=== PATIENT | male | born 1945 | race Caucasian/White ===

== ENCOUNTER 2016-12-15 14:51 | Emergency (ER) | payer OTHER, SELFPAY ==
[2016-12-15 15:08] VITALS: BP 147/77; PULSE 77; RESP 18; TEMP 99; O2SAT 99
--- NOTE | 2016-12-15 15:23 | ED PDOC ---
Lower Extremity Pain/Injury Time Seen by Provider: 12/15/16 15:10 Chief Complaint (Nursing): Lower Extremity Problem/Injury Chief Complaint (Provider): left knee pain History Per: Patient Additional Complaint(s): 71 year old male presents to ED with pain to left knee that started yesterday. Patient denies any fall or injury. He took motrin today and this did not help. He denies any fall or trauma but reports history of arthritis. Past Medical History Reviewed: Historical Data, Nursing Documentation, Vital Signs Vital Signs: Last Vital Signs Temp 99.0 F 12/15/16 15:06 Pulse 77 12/15/16 15:06 Resp 18 12/15/16 15:06 BP 147/77 12/15/16 15:06 Pulse Ox 99 12/15/16 15:06 - Medical History PMH: Back Problems, Benign Prostatic Hyperplasia - Family History Family History: States: No Known Family Hx - Living Arrangements Living Arrangements: With Family - Social History Current smoker - smoking cessation education provided: No Alcohol: None Drugs: Denies - Home Medications Home Medications: Ambulatory Orders Medication Instructions Recorded Lidocaine [Lidoderm] 1 patch TP DAILY PRN #5 tdm 09/17/14 traMADol [Ultram] 50 mg PO Q6H PRN #20 tab 12/21/14 Naproxen [Naprosyn] 500 mg PO BID #20 tab 12/15/16 traMADol [Ultram] 50 mg PO TID PRN #15 tab 12/15/16 - Allergies Allergies/Adverse Reactions: Allergies Allergy/AdvReac Type Severity Reaction Status Date / Time No Known Allergies Allergy Verified 12/21/14 11:52 Wells Criteria for PE - Wells Criteria for Pulmonary Embolism Clinical Signs and Symptoms of DVT: No P.E is #1 Diagnosis, or Equally Likely: No Heart Rate >100: No Immobilization at least 3 days;Surgery previous 4 weeks: No Previous, objectively diagnosed PE or DVT: No Hemoptysis: No Malignancy w/treatment within 6 months, or palliative: No Total Score: 0 Review of Systems ROS Statement: Except As Marked, All Systems Reviewed And Found Negative Constitutional: Negative for: Fever Cardiovascular: Negative for: Chest Pain Gastrointestinal: Negative for: Nausea, Vomiting Musculoskeletal: Positive for: Other (left knee pain since yesterday, denies any fall or trauma) Physical Exam - Reviewed Nursing Documentation Reviewed: Yes Vital Signs Reviewed: Yes - Physical Exam Appears: Positive for: Well, Non-toxic, No Acute Distress Skin: Negative for: Rash Eye Exam: Positive for: Normal appearance Extremity: Positive for: Other (full rom left knee with pain, swelling, no erythema or warmth, swelling or tenderness, normal distal sensation left lower extremity) Neurologic/Psych: Positive for: Alert, Oriented, Gait (steady with cane) - ECG O2 Sat by Pulse Oximetry: 99 Pulse Ox Interpretation: Normal - Other Rad Left knee x-ray X-Ray: Interpreted by Me, Viewed By Me X-Ray Interpretation: no fx, no dis, moderate arthritic changes Medical Decision Making Medical Decision Makin71 year old with atraumatic left knee pain Plan: IM toradol PO tramadol X-ray left knee Patient is aware of x-ray results. Liang wrap was applied to left knee. Prescriptions given for tramadol and Naprosyn. Patient was referred to orthopedist wireless communications engineer and was advised to follow-up in 1-2 days. Procedures - Splinting Location: left knee Pre-Made Type: liang wrap Pre-Proc Neuro Vasc Exam: normal Post-Proc Neuro Vasc Exam: normal Disposition - Clinical Impression Clinical Impression: Knee pain, Arthritis of knee - Patient ED Disposition Is Patient to be Admitted: No Counseled Patient/Family Regarding: Studies Performed, Diagnosis, Need For Followup, Rx Given - Disposition Referrals: Leandra Lowry MD [Staff Provider] - Darwin Coles MD [Family Provider] - Disposition: Routine/Home Disposition Time: 16:36 Condition: STABLE Additional Instructions: Ice, rest and elevate affected area. Take prescription meds as directed as needed for pain. Follow up in 1-2 days with orthopedist. Prescriptions: Naproxen [Naprosyn] 500 mg PO BID #20 tab traMADol [Ultram] 50 mg PO TID PRN #15 tab PRN Reason: Pain, Moderate (4-7) Instructions: Knee Pain (ED), Arthralgia (ED) Forms: [employer] ([place]orese) Print Language: SLOVAK
--- NOTE | 2016-12-15 17:19 | RAD ---
PROCEDURE: Left Knee Radiographs. HISTORY: Pain. COMPARISON: None. FINDINGS: BONES: No evidence of acute displaced fracture nor dislocation. JOINTS: Mild degenerative changes patellofemoral compartment. Small anterior inferior and anterior superior patella enthesophyte formation. Slight spurring of the medial tibial spine There also small heterotopic bone changes seen within the soft tissues adjacent to distal lateral femoral metaphysis JOINT EFFUSION: Suspect trace joint effusion. OTHER FINDINGS: None. IMPRESSION: . No evidence of acute displaced fracture or dislocation. Mild patellofemoral DJD. Suspect trace suprapatellar joint effusion.
== END 2016-12-15 17:43 | disposition home or self-care (01) ==
LOC: H.ER 14:51
DX: M25.562 Pain in left knee (principal); M17.12 Unilateral primary osteoarthritis, left knee
CPT/HCPCS: 73562; 96372; 99282; J1885

== ENCOUNTER 2017-01-10 17:45 | Inpatient (IN) | payer MEDICAID, OTHER ==
[2017-01-10 19:26] LABS: BASO % 0.6 % (0.0-2.0); EOS # 0.1 K/uL (0.0-0.7); EOS % 1.2 % (0.0-4.0); HEMATOCRIT 44.3 % (35.0-51.0); LYMPH # 2.6 K/uL (1.0-4.3); LYMPH % 29.9 % (20.0-40.0); MEAN CELL VOLUME 90.9 fl (80.0-94.0); MEAN CORPUSCULAR HEMOGLOBIN 30.4 pg (27.0-31.0); MEAN CORPUSCULAR HGB CONC 33.4 g/dL (33.0-37.0); MEAN PLATELET VOLUME 8.9 fl (7.2-11.7); MONO # 0.7 K/uL (0.0-0.8); MONO % 8.7 % (0.0-10.0); NEUT # 5.1 K/uL (1.8-7.0); NEUT % 59.6 % (50.0-75.0); RED CELL DISTRIBUTION WIDTH 13.6 % (11.5-14.5); WHITE BLOOD COUNT 8.6 K/uL (4.8-10.8)
[2017-01-10 19:38] LABS: ALB/GLOB RATIO 1.3 (1.0-2.1); ALKALINE PHOSPHATASE 106 U/L (38-126); ALT/SGPT 20 U/L (21-72); AST/SGOT 20 U/L (17-59); BILIRUBIN,TOTAL 0.9 mg/dl (0.2-1.3); BLOOD UREA NITROGEN 17 mg/dl (9-20); CARBON DIOXIDE 19 mmol/L (22-30); CHLORIDE 110 mmol/L (98-107); GFR AFRICAN-AMERICAN > 60; GLUCOSE,RANDOM 85 mg/dL (75-110); SODIUM 141 mmol/l (132-148); TOTAL PROTEIN 7.5 G/DL (6.3-8.2)
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
--- NOTE | 2017-01-10 20:20 | ED PDOC ---
- Laboratory Results Result Diagrams: 01/10/17 19:05 01/10/17 19:05 - ECG O2 Sat by Pulse Oximetry: 99 Pulse Ox Interpretation: Normal - Other Rad CT head X-Ray: Read By Radiologist X-Ray Interpretation: no acute finding Medical Decision Making Medical Decision Making: Case was signed out to aligner typewriter from DANY Baez pending crisis eval, CT head and final disposition. As per crisis counselor and psychiatrist maori liaison adviser, Dr. Sage, patient does meet criteria for admission. Patient agrees to sign in. Patient is medically stable for psychiatric admission. Disposition - Clinical Impression Clinical Impression: Dementia - POA Present On Arrival: None - Disposition Disposition: Admitted as In-Patient Disposition Time: 23:33 Condition: FAIR Results - Lab Results Lab Results: 01/10/17 01/10/17 01/10/17 19:34 19:05 19:05 WBC 8.6 RBC 4.88 Hgb 14.8 Hct 44.3 MCV 90.9 D MCH 30.4 MCHC 33.4 RDW 13.6 Plt Count 150 MPV 8.9 Neut % (Auto) 59.6 Lymph % (Auto) 29.9 [place] % (Auto) 8.7 Eos % (Auto) 1.2 Baso % (Auto) 0.6 Neut # 5.1 Lymph # 2.6 [place] # 0.7 Eos # 0.1 Baso # 0.0 Sodium 141 Potassium 4.0 Chloride 110 H Carbon Dioxide 19 L Anion Gap 16 BUN 17 Creatinine 1.0 Est GFR ( Amer) > 60 Est GFR (Non-Af Amer) > 60 Random Glucose 85 Calcium 10.0 Total Bilirubin 0.9 AST 20 ALT 20 L Alkaline Phosphatase 106 Ammonia < 9 L Total Protein 7.5 Albumin 4.3 Globulin 3.2 Albumin/Globulin Ratio 1.3
--- NOTE | 2017-01-10 21:01 | CT ---
EXAM: CT Head Without Intravenous Contrast CLINICAL HISTORY: 71 years old, male; Signs and symptoms; Other: Aggressive behavoir; Additional info: Agressive behavior TECHNIQUE: Axial computed tomography images of the head/brain without intravenous contrast. All CT scans at this facility use one or more dose reduction techniques, viz.: automated exposure control; ma/kV adjustment per patient size (including targeted exams where dose is matched to indication; i.e. head); or iterative reconstruction technique. Coronal and sagittal reformatted images were created and reviewed. COMPARISON: No relevant prior studies available. FINDINGS: Brain: Mild atrophy. No intracranial hemorrhage. No mass. No definite edema. Ventricles: No hydrocephalus. Bones/joints: No acute fracture. Soft tissues: Unremarkable. Sinuses: No acute sinusitis. Mastoid air cells: No mastoid effusion. Orbits: Unremarkable as visualized. IMPRESSION: 1. No acute intracranial abnormality.
[2017-01-10 22:32] LABS: RBC URINE 9 /hpf (0-3); URINE BILIRUBIN NEGATIVE (NEGATIVE); URINE BLOOD SMALL (NEGATIVE); URINE COLOR YELLOW (YELLOW); URINE GLUCOSE (UA) NEG (Normal); URINE KETONE TRACE mg/dL (NEGATIVE); URINE LEUKOCYTE ESTERASE NEG Leu/uL (Negative); URINE PROTEIN NEGATIVE (NEGATIVE); URINE UROBILINOGEN 0.2-1.0 mg/dL (0.2-1.0); WBC URINE < 1 /hpf (0-5)
[2017-01-10 23:34] VITALS: O2SAT 99
[2017-01-11] MEDS ORDERED: Bismuth Subsalicylate 262 mg/15 ml Sus (240 ml) PO PRN (00:30)
[2017-01-11] MEDS ORDERED: Alum-Mag Hydrox-Simethicone Susp (30 mL) PO PRN (00:30)
[2017-01-11] MEDS ORDERED: Magnesium Hydroxide Susp 30 ml UD PO PRN (00:30)
--- NOTE | 2017-01-11 00:57 | PCM.BM ---
<Reuben Guerrero P - Last Filed: 01/11/17 00:55> Treatment Plan Problems - Problems identified on initial assessmt Delusions Date Initiated: 01/11/17 Time Initiated: 00:45 Assessment reference: NA Status: Active Agitated/aggressive behavior Date Initiated: 01/11/17 Time Initiated: 00:45 Assessment reference: NA Status: Active Treatment assets and liabiliti Patient Assests: cooperative, ADL independent, physically healthy, good support system, negotiates basic needs, cognitively intact Patient Liabilities: relationship conflicts, language/speech - Milieu Protocol Maintain good personal hygiene: daily Encourage regular showers, daily Remind patient to perform daily oral care, daily Assist patient to perform ADL's Maintain personal safety: every shift Educate patient to report safety concerns to staff, every shift Monitor environment for contraband/sharps Medication safety: Monitor for expected outcome, potential side effects: every shift, Assess barriers to learning: every shift, Assess readiness for medication education: every shift <Liliane Sage - Last Filed: 01/13/17 09:56> - Diagnosis (1) Mood disorder Status: Acute Interventions: 01/13/17 09:56 Medication management, individual and group therapy, psychoeducation <Dara Bunch M - Last Filed: 01/13/17 10:23> Family Contact Family contact: Patient agrees to contact, Family has been contacted by patient , Telephone contact initiated by staff, Family contacted unit to give information Family contact name: Freda Atkinson (spouse) Family contacted how many times per week?: 2 ([phone]) - Goals for Treatment Patient goals for treatment: Pt to be encouraged to attend activity and clinical groups 3-5x per week to identify at least 2 contributing factors to increased agitation, paranoia and aggressive bx's at home. Pt to be encouraged to participate in group milieu to develop effective coping skills, improve insight and decrease aggressive bxs and paranoia. Discharge/Continuing Care - Education Needs Education Needs: Family Medication, Family Diagnosis/Disease Process, Family Coping Skills, Family Anger Management skills, Family Placement options, Family Community resources, Family Activities of Daily Living, Family Personal Hygiene/ Grooming, Family Aftercare Safety Plan, Patient Medication, Patient Diagnosis/ Disease Process, Patient Coping Skills, Patient Anger Management skills, Patient Placement options, Patient Community resources, Patient Activities of Daily Living, Patient Personal Hygiene/Grooming, Patient Aftercare Safety Plan - Discharge Discharge Criteria: Tolerates medication w/o severe side effects, Free of paranoid thoughts, Free of agitation, Normal sleep pattern, Ability to care for self, Reduction of target symptoms Discharge to:: Home, With Family - Additional Comments 01/13/17 09:59 Pt seen and discussed in team meeting. Reason for admission discussed. Pt's medications reviewed and discussed. Pt's social and medical issues discussed. Treatment team recommendations discussed, pt agreeable. Pt provided grant writer with verbal consent to contact family for collateral information. Pt agreeable to grant writer contacting his son and spouse. - Treatment Team Participation Discussed with Family/SO: Yes (Pt's family will be informed via telephone )
[2017-01-11 07:27] LABS: T4 6.97 ug/dl (5.5-11.0)
[2017-01-11 07:40] LABS: THYROID STIMULATING HORMONE 2.26 mIU/ML (0.46-4.68)
[2017-01-11] MEDS ORDERED: Pneumococcal 23-Valent Vaccine IM ONE (10:00)
[2017-01-11] MEDS ORDERED: Influenza Vaccine 18yr & older 0.5 ML/45 MCG SYR IM ONE (10:00)
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
--- NOTE | 2017-01-11 12:14 | CP.PCM.CON ---
History of Present Illness - History of Present Illness History of Present Illness: Reason for Consult: per hospital protocol HPI 71 M no known past medical history is admitted for aggressive behavior. Patient at time of this exam is calm, no complaints, VSS NAD ROS: per HPI, 12 systems reviewed and negative PMH: denies PSH: denies FH: denies SH: denies tobacco, ETOH, IVDU Meds: as below Allergies: NKDA Vitals: reviewed and currently stable Exam: GEN: WDWN, alert, cooperative HEENT: NCAT, PERRL, EOMI NECK: supple, no JVD, no lymphadenopathy CARDIAC: +S1S2 RRR LUNG: CTAB No WRR ABD: SOFT NT ND BSX4 NO MASSES NO HSM EXT: +pedal pulses, equal strength NEURO: AAOx3 SKIN warm, dry PSYCH normal mood, normal affect Labs: 01/10/17 19:05 01/10/17 19:05 Rads: HEAD CT: neg Active Medications: 01/11/17 00:29 LORazepam [Ativan] 0.5 mg PO HS PRN 01/11/17 00:30 Acetaminophen [Tylenol 325mg tab] 650 mg PO Q4 PRN Aluminum Hydroxide/Magnesium [Maalox Plus 30 ml] 30 ml PO Q4 PRN Bismuth Subsalicylate [Pepto-Bismol] 524 mg PO Q4 PRN LORazepam [Ativan] 0.5 mg PO Q6 PRN Magnesium Hydroxide [Milk Of Magnesia] 30 ml PO HS PRN Assessment and Plan: 71 M no known past medical history is admitted for aggressive behavior. Patient at time of this exam is calm, no complaints, VSS NAD Aggressive Behavior management per psych team Past Patient History - Past Social History Smoking Status: Never Smoked - CARDIAC Hx Hypertension: Yes - PULMONARY Hx Tuberculosis: No - NEUROLOGICAL HX Cerebrovascular Accident: No Hx Seizures: No - HEMATOLOGICAL/ONCOLOGICAL Hx Cancer: No Hx Human Immunodeficiency Virus (HIV): No - MUSCULOSKELETAL/RHEUMATOLOGICAL Hx Falls: Yes (8 mons ago) - GENITOURINARY/GYNECOLOGICAL Hx Prostate Problems: Yes - PSYCHIATRIC Hx Substance Use: No - SURGICAL HISTORY Hx Herniorrhaphy: Yes - ANESTHESIA Hx Anesthesia: Yes Hx Anesthesia Reactions: No Meds Allergies/Adverse Reactions: Allergies Allergy/AdvReac Type Severity Reaction Status Date / Time No Known Allergies Allergy Verified 12/21/14 11:52 - Medications Medications: Current Medications Acetaminophen (Tylenol 325mg Tab) 650 mg PO Q4 PRN PRN Reason: Pain, moderate (4-7) Al Hydrox/Mg Hydrox/Simethicone (Maalox Plus 30 Ml) 30 ml PO Q4 PRN PRN Reason: Dyspepsia Bismuth Subsalicylate (Pepto-Bismol) 524 mg PO Q4 PRN PRN Reason: Diarrhea Lorazepam (Ativan) 0.5 mg PO HS PRN PRN Reason: Insomnia Stop: 01/25/17 00:30 Lorazepam (Ativan) 0.5 mg PO Q6 PRN PRN Reason: Anixety/Agitation Stop: 01/25/17 00:31 Magnesium Hydroxide (Milk Of Magnesia) 30 ml PO HS PRN PRN Reason: Constipation Results - Vital Signs Recent Vital Signs: Last Vital Signs Temp 97.1 F L 01/11/17 05:49 Pulse 60 01/11/17 05:49 Resp 19 01/11/17 05:49 BP 125/63 01/11/17 05:49 Pulse Ox 99 01/10/17 23:34 - Labs Result Diagrams: 01/10/17 19:05 01/10/17 19:05 Labs: Laboratory Results - last 24 hr 01/10/17 01/10/17 01/10/17 20:17 22:20 22:20 Ferritin Triglycerides Cholesterol LDL Cholesterol Direct HDL Cholesterol Vitamin B12 Free T4 Thyroxine (T4) TSH 3rd Generation Urine Color Yellow Urine Clarity Slighty-cloudy Urine pH 5.0 Ur Specific [place] 1.023 Urine Protein Negative Urine Glucose (UA) Neg Urine Ketones Trace Urine Blood Small Urine Nitrate Negative Urine Bilirubin Negative Urine Urobilinogen 0.2-1.0 Ur Leukocyte Esterase Neg Urine RBC (Auto) 9 H Urine Microscopic WBC < 1 Urine Opiates Screen Negative Urine Methadone Screen Negative Ur Barbiturates Screen Negative Ur Phencyclidine Scrn Negative Ur Amphetamines Screen Negative U Benzodiazepines Scrn Negative U Oth Cocaine Metabols Negative U Cannabinoids Screen Negative Alcohol, Quantitative < 10 01/11/17 01/11/17 04:00 06:30 Ferritin 41.4 Triglycerides 174 H Cholesterol 173 LDL Cholesterol Direct 95 HDL Cholesterol 35 Vitamin B12 404 Free T4 0.90 Thyroxine (T4) 6.97 TSH 3rd Generation 2.26 Urine Color Urine Clarity Urine pH Ur Specific [place] Urine Protein Urine Glucose (UA) Urine Ketones Urine Blood Urine Nitrate Urine Bilirubin Urine Urobilinogen Ur Leukocyte Esterase Urine RBC (Auto) Urine Microscopic WBC Urine Opiates Screen Urine Methadone Screen Ur Barbiturates Screen Ur Phencyclidine Scrn Ur Amphetamines Screen U Benzodiazepines Scrn U Oth Cocaine Metabols U Cannabinoids Screen Alcohol, Quantitative
--- NOTE | 2017-01-11 12:44 | RAD ---
HISTORY: cough COMPARISON: No prior. TECHNIQUE: Chest PA and lateral FINDINGS: LUNGS: No active pulmonary disease. PLEURA: No significant pleural effusion identified. No pneumothorax apparent. CARDIOVASCULAR: Normal. OSSEOUS STRUCTURES: No significant abnormalities. VISUALIZED UPPER ABDOMEN: Normal. OTHER FINDINGS: None. IMPRESSION: No active disease.
--- NOTE | 2017-01-12 20:05 | PCM.PYCHPN ---
Psychiatric Progress Note - Psychiatric Progress Note Patient seen today, length of contact: chart reviewed case discussed with team Patient Chief Complaint: reports had visit with family reported as positive. does report feeling a little down, changes in lof, remorse related to reported actions prior to admission Problems Identified/Issues Discussed: alteration in mood alteration self care Medical Problems: per chart seen by dr pal Diagnostic Results: per psychiatry per medicine per nursing per social work DSM 5 Symptoms Update: alteration in mood ?changes short term memory alteration in urological function ? erectile dysfunction Medication Change: Yes (lexapro 5mg po hs ?mood ) Medical Record Reviewed: Yes Consults ordered or reviewed: pt seen by hospitalist Mental Status Examination - Cognitive Function Orientation: Person, Place, Situation, Time Memory: Intact Attention: WNL Concentration: WNL Association: WNL Fund of Knowledge: WN Decription of patient's judgement and insights: somewhat impaired - Mood Mood: Depressed Additional comments: somewhat down - Affect Affect: Broad - Speech Speech: Soft Additional comments: speaks canadian - Formal Thought Process Formal Thought Process: No Impairment - Homicidal Ideation Homicidal Ideation: No Goal/Treatment Plan - Goal/Treatment Plan Need for Continued Stay: Remain at risks for inpatient hospitalization, Failed transitioning Progress Toward Problem(s) and Goals/Treatment Plan: inpt milieu vital signs and clinical observation per protocol and per clinical status prns per protocol dr torres-dementia screening\ disposition planning in progress Estimated Date of D/C: 01/16/17 - Smoking Cessation Smoking Cessation Initiated: No Reason for not providing: pt deferred
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
[2017-01-13 13:57] LABS: FOLATE 5.2 ng/mL
[2017-01-13] MEDS: Naproxen 500 MG TAB PO PRN (21:41)
--- NOTE | 2017-01-14 11:04 | PCM.PYCHPN ---
Psychiatric Progress Note - Psychiatric Progress Note Patient seen today, length of contact: Patient evaluated, case discussed with team, chart reviewed, 35 min Patient Chief Complaint: "I'm okay" Problems Identified/Issues Discussed: Patient reports that his mood is good. He is discharge focussed. He denies ideation to harm self or others. He reports less paranoia. No adverse effects to Risperdal reported. Medication Change: No Medical Record Reviewed: Yes Mental Status Examination - Cognitive Function Orientation: Person, Place, Situation, Time Memory: Intact Attention: WNL Concentration: WNL Association: WN Fund of Knowledge: [facility] Decription of patient's judgement and insights: Fair I/J - Mood Mood: Neutral - Affect Affect: Broad - Speech Speech: Appropriate - Formal Thought Process Formal Thought Process: Paranoia Psychotic Thoughts and Behaviors: +Less paranoia - Suicidal Ideation Suicidal Ideation: No - Homicidal Ideation Homicidal Ideation: No Goal/Treatment Plan - Goal/Treatment Plan Need for Continued Stay: Remain at risks for inpatient hospitalization, Discharge may exacerbated symptoms Progress Toward Problem(s) and Goals/Treatment Plan: Mood disorder unspecified, Psychosis unspecified; r/o dementia w/ behavioral disturbances; Patient is improving clinically -Continue Risperdal 0.5 mg PO HS -Obtain collateral history from his family -Individual and group therapy -Disposition planning -Medicine consult appreciated Estimated Date of D/C: 01/15/17 - Smoking Cessation Smoking Cessation Initiated: No Reason for not providing: Not indicated
[2017-01-14 16:16] VITALS: RESP 20
[2017-01-14] MEDS: Naproxen 500 MG TAB PO PRN (21:15)
[2017-01-15 05:41] VITALS: BP 102/51; PULSE 90; TEMP 97
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
== END 2017-01-15 13:00 | disposition home or self-care (01) | DRG 885 ==
LOC: H.ER 17:45 → H.EROBSV 20:04 → OBSVTOIN 20:04 → H.ERHOLD 23:11 → H.STEP 01-11 00:12
PROVIDERS: ADMIT Psychiatry & Neurology Psychiatry; ATTEND Psychiatry & Neurology Psychiatry
PROC: 3E0234Z Introduction of Serum, Toxoid and Vaccine into Muscle, Percutaneous Approach (ICD-10-PCS; principal; 2017-01-11)
DX: F39 Unspecified mood [affective] disorder (principal); F03.91 Unspecified dementia, unspecified severity, with behavioral disturbance; N40.0 Benign prostatic hyperplasia without lower urinary tract symptoms; I10 Essential (primary) hypertension; M54.9 Dorsalgia, unspecified; F22 Delusional disorders; Z23 Encounter for immunization

== ENCOUNTER 2017-06-14 14:49 | Emergency (ER) | payer MEDICAID, OTHER ==
[2017-06-14 15:00] VITALS: BP 137/69; PULSE 78; RESP 16; TEMP 97.6; O2SAT 98
[2017-06-14] MEDS ORDERED: Lidocaine 5% Patch TD STA (15:31)
--- NOTE | 2017-06-14 15:59 | ED PDOC ---
Lower Extremity Pain/Injury Time Seen by Provider: 06/14/17 15:03 Chief Complaint (Nursing): Lower Extremity Problem/Injury Chief Complaint (Provider): Right Ankle Pain History/Exam Limitations: no limitations Onset/Duration Of Symptoms: Days (x3), Worse Since Current Symptoms Are (Timing): Still Present Severity: None Additional Complaint(s): 72 year old male with a past medial history of gout, hypertension and dementia presents to the ED complaining of right ankle pain x3 days. The patient reports that the pain has been worsening with onset and associated with swelling. He states that he has not taken any medications for pain because he is unsure of whether not they would interrupt his other day to day medications. Denies trauma , fever. Patient states that he had similar pains in the past and was told that it was secondary to gout. PMD: Dr. Clinton ([place]) Past Medical History Reviewed: Historical Data, Nursing Documentation, Vital Signs Vital Signs: Last Vital Signs Temp 97.6 F 06/14/17 14:57 Pulse 78 06/14/17 14:57 Resp 16 06/14/17 14:57 BP 137/69 06/14/17 14:57 Pulse Ox 98 06/14/17 14:57 - Medical History PMH: Back Problems, Benign Prostatic Hyperplasia, HTN Denies: Diabetes, Hepatitis, HIV, Seizures, Sexually Transmitted Disease - Surgical History Surgical History: Hernia Repair Other surgeries: Knee meniscal repair; tonsillectomy - Family History Family History: States: Unknown Family Hx - Home Medications Home Medications: Ambulatory Orders Medication Instructions Recorded risperiDONE [RisperDAL Tab] 0.5 mg PO HS #30 tab 01/15/17 Naproxen [Naprosyn] 1 tab PO BID PRN #30 tab 06/14/17 - Allergies Allergies/Adverse Reactions: Allergies Allergy/AdvReac Type Severity Reaction Status Date / Time No Known Allergies Allergy Verified 12/21/14 11:52 Review of Systems ROS Statement: Except As Marked, All Systems Reviewed And Found Negative Constitutional: Negative for: Fever Musculoskeletal: Positive for: Other (Right Ankle Pain and swelling) Physical Exam - Reviewed Nursing Documentation Reviewed: Yes Vital Signs Reviewed: Yes - Physical Exam Appears: Positive for: Well, No Acute Distress Head Exam: Positive for: ATRAUMATIC, NORMOCEPHALIC Skin: Positive for: Warm, Dry. Negative for: Rash Extremity: Positive for: Calf Tenderness (less than 2 seconds), Other (right ankle b/l edema non pitting with tenderness to palpation to b/l malleloli lateral worse than medial; light tough intact palpable pedal pulses less than 2 sec; capillary refills plantar flexion and dorsiflexion 5/5 strength ). Negative for: Tenderness, Swelling Neurologic/Psych: Positive for: Alert. Negative for: Motor/Sensory Deficits - ECG O2 Sat by Pulse Oximetry: 98 Pulse Ox Interpretation: Normal Medical Decision Making Medical Decision Makin initial Impression 72 y/o male presenting with ankle pain and swelling Initial Plan: * Lidocaine 1ex TD * Toradol 30m IM RD * Rt ankle * Reevaluation RIGHT ankle xray: No fx/dislocation. +degenerative changes Aircast, Naprosyn, stable for dc with f/u podiatry Documented by Tiera Bardales acting as a scribe for Giulia Bolaños MD. All medical record entries made by the Scribe were at my direction and personally dictated by me. I have reviewed the chart and agree that the record accurately reflects my personal performance of the history, physical exam, medical decision making, and the department course for this patient. I have also personally directed, reviewed, and agree with the discharge instructions and disposition. Disposition - Clinical Impression Clinical Impression: Ankle pain Counseled Patient/Family Regarding: Studies Performed, Diagnosis, Need For Followup, Rx Given - Disposition Referrals: Podiatry Clinic [Outside] - 06/16/17 ([facility]SE[facility] EN 2- 3 PARTIDA A CHEQAR DE NUEVO) [facility] [Outside] Disposition: Routine/Home Disposition Time: 17:33 Condition: STABLE Prescriptions: Naproxen [Naprosyn] 1 tab PO BID PRN #30 tab PRN Reason: Pain Instructions: Gout (DC) Print Language: JAPANESE
--- NOTE | 2017-06-15 10:27 | RAD ---
PROCEDURE: Right Wrist Radiographs. HISTORY: RIGHT ankle pain and swelling COMPARISON: None. FINDINGS: BONES: Normal. No fracture. JOINTS: Normal. No dislocation. SOFT TISSUES: Normal. OTHER FINDINGS: Mild degenerative changes with plantar heel spur. IMPRESSION: No fracture.
== END 2017-06-14 19:00 | disposition home or self-care (01) ==
LOC: H.ER 14:49
DX: M25.571 Pain in right ankle and joints of right foot (principal); I10 Essential (primary) hypertension; F03.90 Unspecified dementia, unspecified severity, without behavioral disturbance, psychotic disturbance, mood disturbance, and anxiety; M10.9 Gout, unspecified
CPT/HCPCS: 73610; 96372; 99283; J1885

== ENCOUNTER 2017-07-24 14:04 | Emergency (ER) | payer MEDICAID, OTHER, SELFPAY ==
[2017-07-24 14:16] VITALS: O2SAT 98
[2017-07-24] MEDS ORDERED: Sodium Chloride 0.9% 500 ML IV STA (15:27)
--- NOTE | 2017-07-24 15:36 | ED PDOC ---
HPI: Headache Time Seen by Provider: 07/24/17 15:35 Chief Complaint (Nursing): Headache Chief Complaint (Provider): HEADACHE History Per: Patient (72 Y/O MALE HERE WITH HEADACHE GENERALIZED ONGOING X 3 DAYS. SEEN [place] [facility] [place] WNL AND GIVEN RX FOR TYLENOL. DID NOT TAKE ANY MEDICATION TODAY. DENIES ANY H/O HEADACHE. DENEIS ANY FEVERS/CHILLS.) Past Medical History Reviewed: Historical Data, Nursing Documentation, Vital Signs Vital Signs: Last Vital Signs Temp 98.0 F 07/24/17 14:11 Pulse 84 07/24/17 14:11 Resp 16 07/24/17 14:11 BP 136/76 07/24/17 14:11 Pulse Ox 98 07/24/17 14:11 - Medical History PMH: Back Problems, Benign Prostatic Hyperplasia, HTN Denies: Diabetes, Hepatitis, HIV, Seizures, Sexually Transmitted Disease - Surgical History Surgical History: Hernia Repair - Family History Family History: States: Unknown Family Hx - Home Medications Home Medications: Ambulatory Orders Medication Instructions Recorded risperiDONE [RisperDAL Tab] 0.5 mg PO HS #30 tab 01/15/17 Naproxen [Naprosyn] 1 tab PO BID PRN #30 tab 06/14/17 - Allergies Allergies/Adverse Reactions: Allergies Allergy/AdvReac Type Severity Reaction Status Date / Time No Known Allergies Allergy Verified 07/24/17 14:11 Review of Systems ROS Statement: Except As Marked, All Systems Reviewed And Found Negative Neurological: Positive for: Headache Physical Exam - Reviewed Nursing Documentation Reviewed: Yes Vital Signs Reviewed: Yes - Physical Exam Appears: Positive for: Well, Non-toxic, No Acute Distress Head Exam: Positive for: ATRAUMATIC, NORMAL INSPECTION, NORMOCEPHALIC Skin: Positive for: Normal Color, Warm, DRY Eye Exam: Positive for: EOMI, Normal appearance, PERRL ENT: Positive for: Normal ENT Inspection Neck: Positive for: Normal, Painless ROM Cardiovascular/Chest: Positive for: Regular Rate, Rhythm Respiratory: Positive for: CNT, Normal Breath Sounds Gastrointestinal/Abdominal: Positive for: Normal Exam, Bowel Sounds, Soft Back: Positive for: Normal Inspection Extremity: Positive for: Normal ROM Neurologic/Psych: Positive for: Alert, Oriented - Laboratory Results Result Diagrams: 07/24/17 16:15 07/24/17 16:15 - ECG O2 Sat by Pulse Oximetry: 98 - Progress ED Course And Treament: Head CT: IMPRESSION: No acute intracranial abnormality. Mild age-related global parenchymal volume loss. NS 500 ml iv bolus Toradol 15 mg iv x 1 dose states patient has appt with psychiatrist August 01. Patient to f/u with him for further evaluation. As per , patient has been having abnormal sleeping pattern and intermittently missing dosing of medication of mirtazapine/ risperidone. d/w family if unable to obtain earlier appointment, can return to ED . Family does not want psych eval at this time. Disposition - Clinical Impression Clinical Impression: Headache - Patient ED Disposition Is Patient to be Admitted: No - Disposition Disposition: Routine/Home Disposition Time: 19:17 Condition: FAIR Instructions: Tension Headache Forms: [employer] (Albanian)
[2017-07-24 16:21] LABS: BASO # 0.1 K/uL (0.0-0.2); BASO % 0.8 % (0.0-2.0); EOS # 0.1 K/uL (0.0-0.7); EOS % 1.2 % (0.0-4.0); HEMOGLOBIN 14.2 g/dL (12.0-18.0); LYMPH # 1.6 K/uL (1.0-4.3); LYMPH % 23.4 % (20.0-40.0); MEAN CELL VOLUME 89.9 fl (80.0-94.0); MEAN CORPUSCULAR HEMOGLOBIN 30.3 pg (27.0-31.0); MEAN CORPUSCULAR HGB CONC 33.7 g/dL (33.0-37.0); MEAN PLATELET VOLUME 8.2 fl (7.2-11.7); MONO # 0.5 K/uL (0.0-0.8); MONO % 7.4 % (0.0-10.0); NEUT # 4.7 K/uL (1.8-7.0); NEUT % 67.2 % (50.0-75.0); NRBC % 0.1 % (0.0-0.0); RBC 4.7 Mil/uL (4.40-5.90)
[2017-07-24 16:34] LABS: ALB/GLOB RATIO 1.2 (1.0-2.1); ALBUMIN 4.4 g/dL (3.5-5.0); ALT/SGPT 26 U/L (21-72); AST/SGOT 26 U/L (17-59); BLOOD UREA NITROGEN 12 mg/dl (9-20); CALCIUM 10.1 mg/dL (8.4-10.2); GFR AFRICAN-AMERICAN > 60; GFR NON-AFRICAN AMERICAN > 60
--- NOTE | 2017-07-24 17:17 | CT ---
PROCEDURE: CT HEAD WITHOUT CONTRAST. HISTORY: Headache COMPARISON: 01/10/2017. TECHNIQUE: Axial computed tomography images were obtained through the head/brain without intravenous contrast. Radiation dose: Total exam DLP = 770.47 mGy-cm. This CT exam was performed using one or more of the following dose reduction techniques: Automated exposure control, adjustment of the mA and/or kV according to patient size, and/or use of iterative reconstruction technique. FINDINGS: HEMORRHAGE: No intracranial hemorrhage. BRAIN: There is no mass, mass effect or abnormal extra-axial fluid collection. VENTRICLES: There is mild age-related global parenchymal volume loss and proportionate enlargement of the ventricles and cortical sulci. CALVARIUM: The skull base and calvarium are normal. PARANASAL SINUSES: Predominantly clear. MASTOID AIR CELLS: Predominantly clear. OTHER FINDINGS: None. IMPRESSION: No acute intracranial abnormality. Mild age-related global parenchymal volume loss.
[2017-07-24 18:32] VITALS: BP 138/89; PULSE 82; RESP 18; TEMP 98
== END 2017-07-24 20:00 | disposition home or self-care (01) ==
LOC: H.ER 14:04
DX: R51 Headache (principal); I10 Essential (primary) hypertension; N40.0 Benign prostatic hyperplasia without lower urinary tract symptoms
CPT/HCPCS: 70450; 80053; 85025; 96374; 99285; J1885; J7040